=== PATIENT | male | born 1980 | race Two or more races ===

== ENCOUNTER 2017-12-11 16:51 | Emergency (ER) | payer SELFPAY ==
[~2017-12-11] VITALS: Ht 152.4 cm; Wt 60.8 kg
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
[2017-12-11] MEDS ORDERED: Tetanus/Diptheria/Pertussis Vaccine 0.5ml Syr IM ONE (17:45)
[2017-12-11] MEDS ORDERED: BACITRACIN-P28.35 GM TP (18:29)
[2017-12-11] MEDS ORDERED: IBUPROFEN600 MG ORAL (18:29)
[2017-12-11 20:29] VITALS: BP 130/79
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
== END 2017-12-11 19:10 | disposition home or self-care (01) ==
LOC: EMR 17:30
DX: S21.139A Puncture wound without foreign body of unspecified front wall of thorax without penetration into thoracic cavity, initial encounter (principal); X99.8XXA Assault by other sharp object, initial encounter; Y92.9 Unspecified place or not applicable; Z23 Encounter for immunization
CPT/HCPCS: 71045; 90471; 90715; 99283